=== PATIENT | female | born 1965 | race Caucasian/White ===

== ENCOUNTER 2024-01-21 16:05 | Inpatient (IN) | payer OTHER ==
[2024-01-21] MEDS ORDERED: KETOROLAC TROMETHAMINE 15 MG/ML VIAL ONE (16:33)
[2024-01-21] MEDS ORDERED: MAGNESIUM CITRATE 300 ML BOTTLE ONE (16:33)
[2024-01-21] MEDS ORDERED: LIDOCAINE 5% TOPICAL PATCH ONE (16:33)
[2024-01-21] MEDS: MAGNESIUM CITRATE 300 ML BOTTLE PO ONE (16:45)
[2024-01-21] MEDS: KETOROLAC TROMETHAMINE 15 MG/ML VIAL IVPUSH ONE (16:45)
[2024-01-21] MEDS: LIDOCAINE 5% TOPICAL PATCH TP ONE (16:45)
[2024-01-21 17:47] LABS: HEMATOCRIT 44.4 % (32.4-45.2); HEMOGLOBIN 14.5 G/dL (10.7-15.3); MCH 29.5 pg (25.7-33.7); MCHC 32.7 g/dl (32.0-36.0); MEAN CELL VOLUME 90.3 fl (80-96); MEAN PLT VOLUME 9.4 fl (7.5-11.1); PLATELET COUNT 279.9 10^3/uL (134-434); RBC 4.92 10^6/uL (3.60-5.2); RDW 13.7 % (11.6-15.6); WHITE BLOOD COUNT 15.8 10^3/uL (4.0-10.8)
[2024-01-21 17:48] LABS: PLATELET ESTIMATE ADEQUATE
[2024-01-21] MEDS: SODIUM CHLORIDE 0.9% 500 ML INFUS.BAG IV ONE (17:59)
[2024-01-21 18:05] LABS: ALBUMIN 4.2 g/dl (3.4-5.0); BILIRUBIN,TOTAL 0.5 mg/dl (0.2-1); CALCIUM 9.2 mg/dl (8.5-10.1); CREATININE 0.7 mg/dl (0.6-1.3); TOT PROT 7.2 g/dl (6.4-8.2)
[2024-01-21 18:11] LABS: EPITHELIAL CELLS 0-5 /hpf
[2024-01-21] MEDS ORDERED: ACETAMINOPHEN INJECTION 100 ML IVPB ONE (19:48)
[2024-01-21] MEDS: ACETAMINOPHEN 1000 MG/100 ML BAG IVPB ONE (19:53)
[2024-01-21] MEDS: LIDOCAINE PATCH REMOVAL MC SCH (22:04)
[2024-01-21] MEDS: morphine CARPU-JECT 2 MG/1 ML DISP.SYRIN IVPUSH ONE (22:44)
[2024-01-21] MEDS ORDERED: ONDANSETRON 4 MG/2 ML VIAL IVPUSH PRN (23:02)
[2024-01-21] MEDS: SODIUM CHLORIDE 1,000 ML IV SCH (23:45)
[2024-01-22] MEDS ORDERED: MAG HYDROX/AL HYDROX/SIMETH 30 ML UNIT-DOSE CUP ONE (00:47)
[2024-01-22] MEDS: morphine CARPU-JECT 2 MG/1 ML DISP.SYRIN IVPUSH ONE (00:53)
[2024-01-22] MEDS: MAG HYDROX/AL HYDROX/SIMETH 30 ML UNIT-DOSE CUP PO ONE (00:53)
[2024-01-22] MEDS: SIMETHICONE 80 MG TAB.CHEW (FP) PO PRN (00:54)
[2024-01-22] MEDS: ACETAMINOPHEN 325 MG TABLET (FP) PO PRN (03:59)
[2024-01-22] MEDS ORDERED: morphine CARPU-JECT 4 MG/1 ML DISP.SYRIN IVPUSH PRN (04:55)
[2024-01-22 05:44] VITALS: BMI 36.1
[2024-01-22] MEDS: LEVOTHYROXINE NA 50 MCG TABLET (FP) PO SCH (06:33)
[2024-01-22] MEDS: ACETAMINOPHEN 1000 MG/100 ML BAG IVPB SCH (09:23)
[2024-01-22] MEDS: ENOXAPARIN NA (PORCINE) 40 MG/0.4 ML DISP.SYRIN SQ SCH (09:24)
[2024-01-22] MEDS: amLODIPine BESYLATE 5 MG TABLET (FP) PO SCH (09:24)
[2024-01-22] MEDS: EZETIMIBE 10 MG TABLET (FP) PO SCH (09:24)
[2024-01-22 11:05] LABS: HEMATOCRIT 39.8 % (32.4-45.2); HEMOGLOBIN 13.4 GM/dL (10.7-15.3); MCH 29.5 pg (25.7-33.7); MCHC 33.6 g/dl (32.0-36.0); MEAN CELL VOLUME 87.9 fl (80-96); MEAN PLT VOLUME 9.2 fl (7.5-11.1); PLATELET COUNT 304 10^3/uL (134-434); RBC 4.52 M/mm3 (3.60-5.2); RDW 13.6 % (11.6-15.6); WHITE BLOOD COUNT 11.8 K/mm3 (4.0-10.0)
[2024-01-22 11:06] LABS: INR 1.05 (0.83-1.09); PROTHROMBIN TIME (PATIENT) 11.9 SEC (9.7-13.0)
[2024-01-22 11:17] LABS: POTASSIUM 3.9 mmol/L (3.5-5.1)
[2024-01-22 11:20] LABS: ALBUMIN 3.6 g/dl (3.4-5.0); BLOOD UREA NITROGEN 14.6 mg/dL (7-18); CALCIUM 8.5 mg/dL (8.5-10.1); MAGNESIUM 2.8 mg/dL (1.8-2.4)
[2024-01-22 11:23] LABS: CREATININE 0.7 mg/dL (0.55-1.3); PHOSPHOROUS 2.5 mg/dL (2.5-4.9)
[2024-01-22 11:25] LABS: BILIRUBIN,TOTAL 0.7 mg/dL (0.2-1); TOT PROT 7.1 g/dl (6.4-8.2)
[2024-01-22] MEDS: PANTOPRAZOLE SODIUM 40 MG VIAL IVPUSH SCH (13:44)
[2024-01-23 08:25] LABS: BASO % 1.1 % (0-2.0); EOS % 1.2 % (0-4.5); HEMATOCRIT 40.6 % (32.4-45.2); HEMOGLOBIN 13.2 GM/dL (10.7-15.3); LYMPH % 18.9 % (8-40); MCH 29.1 pg (25.7-33.7); MCHC 32.5 g/dl (32.0-36.0); MEAN CELL VOLUME 89.8 fl (80-96); MONO % 8.7 % (3.8-10.2); NEUT % 70.1 % (42.8-82.8); PLATELET COUNT 275 10^3/uL (134-434); RBC 4.52 M/mm3 (3.60-5.2); RDW 13.5 % (11.6-15.6); WHITE BLOOD COUNT 9.7 K/mm3 (4.0-10.0)
[2024-01-23 08:57] LABS: ALBUMIN 3.2 g/dl (3.4-5.0); BLOOD UREA NITROGEN 9.6 mg/dL (7-18); CALCIUM 7.8 mg/dL (8.5-10.1); MAGNESIUM 2.8 mg/dL (1.8-2.4)
[2024-01-23 09:00] LABS: CREATININE 0.6 mg/dL (0.55-1.3)
[2024-01-23 09:02] LABS: TOT PROT 6.2 g/dl (6.4-8.2)
[2024-01-23 09:04] LABS: BILIRUBIN,TOTAL 0.7 mg/dL (0.2-1)
[2024-01-23 09:16] LABS: POTASSIUM 3.3 mmol/L (3.5-5.1)
[2024-01-23] MEDS: POTASSIUM CHLORIDE ORAL LIQUID 20 MEQ/15 ML PO ONE (13:20)
[2024-01-23] MEDS: AMOX TR/POT CLAV 875MG/125MG TABLETS (FP) PO SCH (13:21)
[2024-01-23] MEDS: ACETAMINOPHEN 500 MG TABLET (FP) PO PRN (19:35)
[2024-01-24 06:53] VITALS: BP 127/67; PULSE 79; RESP 18; TEMP 98.4
[2024-01-24 07:27] LABS: EOS % 4.3 % (0-4.5); HEMATOCRIT 37.7 % (32.4-45.2); HEMOGLOBIN 13.1 GM/dL (10.7-15.3); LYMPH % 21.4 % (8-40); MCH 30.5 pg (25.7-33.7); MCHC 34.8 g/dl (32.0-36.0); MEAN CELL VOLUME 87.6 fl (80-96); MEAN PLT VOLUME 8.4 fl (7.5-11.1); NEUT % 63.3 % (42.8-82.8); PLATELET COUNT 278 10^3/uL (134-434); RBC 4.31 M/mm3 (3.60-5.2); RDW 13.4 % (11.6-15.6); WHITE BLOOD COUNT 7.8 K/mm3 (4.0-10.0)
[2024-01-24 07:40] LABS: POTASSIUM 3.5 mmol/L (3.5-5.1)
[2024-01-24 07:45] LABS: BLOOD UREA NITROGEN 6.6 mg/dL (7-18)
[2024-01-24 07:46] LABS: CALCIUM 8.3 mg/dL (8.5-10.1); MAGNESIUM 2.3 mg/dL (1.8-2.4)
[2024-01-24 07:50] LABS: BILIRUBIN,TOTAL 0.9 mg/dL (0.2-1); TOT PROT 6.2 g/dl (6.4-8.2)
[2024-01-24 07:52] LABS: CREATININE 0.6 mg/dL (0.55-1.3)
== END 2024-01-24 12:21 | disposition home or self-care (01) | DRG 390 ==
LOC: FER 16:05 → J8W 01-22 02:45
PROVIDERS: ADMIT Internal Medicine; ATTEND Nurse Practitioner Family
DX: K56.690 Other partial intestinal obstruction (principal); K59.00 Constipation, unspecified; I10 Essential (primary) hypertension; E78.5 Hyperlipidemia, unspecified; M06.9 Rheumatoid arthritis, unspecified; K64.8 Other hemorrhoids; E03.9 Hypothyroidism, unspecified; E66.9 Obesity, unspecified; Z68.36 Body mass index [BMI] 36.0-36.9, adult; R33.9 Retention of urine, unspecified; M54.30 Sciatica, unspecified side
CPT/HCPCS: 36415; 71045-TC-FY; 74018-TC-FY; 74019-TC-FY; 74177-TC; 80053; 81003; 81015; 83605; 83735; 84100; 85025; 85027; 85610; 86850; 86900; 86901; 87086; 87186; 93005; 99285-25; J0131; Q9967